=== PATIENT | female | born 1970 | race Caucasian/White ===

== ENCOUNTER → 2019-04-09 | Outpatient (CLI) | payer OTHER | END | disposition home or self-care (01) | LOC: CFH 10:14 | PROVIDERS: ATTEND Pathology Hematology | CPT/HCPCS: 77063; 77067 ==

== ENCOUNTER 2019-06-06 07:50 | Outpatient (CLI) | payer OTHER ==
[2019-06-06] MEDS ORDERED: GADOTERATE 10 MMOL/20 ML VIAL ONE (08:30)
== END 2019-06-06 23:59 | disposition home or self-care (01) ==
LOC: CFH 07:50
PROVIDERS: ATTEND Pathology Hematology
DX: N63.12 Unspecified lump in the right breast, upper inner quadrant (principal); Z85.3 Personal history of malignant neoplasm of breast; Z90.11 Acquired absence of right breast and nipple; Z98.82 Breast implant status
CPT/HCPCS: 77049; A9575; C8908; C8937

== ENCOUNTER 2019-12-31 13:17 | Outpatient (CLI) | payer OTHER | END 2019-12-31 23:59 | disposition home or self-care (01) | LOC: CFH 13:17 | PROVIDERS: ATTEND Surgery | DX: R92.8 Other abnormal and inconclusive findings on diagnostic imaging of breast (principal); N63.0 Unspecified lump in unspecified breast; Z85.3 Personal history of malignant neoplasm of breast | CPT/HCPCS: 76642; 77066; G0279; 77063 ==